=== PATIENT | female | born 1955 | race Caucasian/White ===

== ENCOUNTER 2023-07-12 12:45 | Outpatient (RCR) | payer OTHER, SELFPAY ==
--- NOTE | 2023-07-12 16:38 | PT.OPEX ---
PT [facility] [facility] PT [facility] Eval Start: 07/12/23 16:19 Freq: Status: Active Protocol: Document 07/12/23 16:19 SILVANA (Rec: 07/12/23 16:31 SILVANA [id number]) E-signed By Jessica White DPT Physical Therapy Outpatient Evaluation Insurance Information Recert Due Date 10/10/23 Insurance Name Medicare B Medical Diagnosis L hip OA L JÚNIOR 07/19/23 Treating Diagnosis L hip pain, impaired L hip ROM , limited tolerance for extended standing/walking, limping/antalgic gait, core/ hip/glut weakness Subjective Subjective Patient reports chronic L hip pain leading up to L JÚNIOR scheduled for 07/18. She has been doing some PT leading up to her JÚNIOR surgery, HEP is going well. She c/o ongoing pain, limited ROM, glut/hip weakness. Patient has family living with her, lots of help at home to assist as needed after surgery. She reports having R JÚNIOR about 8 years ago or so - Dr Luu with posterior approach. She has not been needing an AD but is able to borrow a walker and has a cane to use after surgery. Pain range 3-8/10. Using pain meds as needed. Date of Last Physician Visit 06/24/23 Date of Surgery (If applicable) 07/19/23 Current Work Status Retired Precautions Treatment Precautions/Contraindications HX L TKA, R JÚNIOR Assessment Assessment/Impression Patient is a 67 year old female with L hip pain, impaired L hip ROM, limited tolerance for extended standing/walking, limping/ antalgic gait, core/hip/glut weakness. Pain range 3-8/10. Patient seen in PT today for pre-op session to provide education/information on upcoming JÚNIOR surgery, safety information/HO, equipment instruction including use of FWW, and instruction in JÚNIOR exercises. Handouts issued for exercises, patient to perform them leading up to surgery. Patient has HEP from PT leading up to her hip surgery and she was able to demonstrate these exercises this session. Plan is for same day d/c home after her L JÚNIOR. Reviewed therapy plan after surgery including JÚNIOR exercises, amb with FWW, and stairs. Patient is scheduled for OP PT post op at another PT clinic. Patient seen for pre-op only session today. She reports having family at home to assist as needed after surgery. She has a FWW and cane to use as needed after surgery. Patient has 3 stairs to enter the home, no railing but plans to use cane and family arm support. Once inside patient can stay on the main level during the day but she is planning to go upstairs to her bedroom. The upper level has a tub shower. Patient reports lower level of the home has a walk in shower. She has high rise toilet seats . Patient would benefit from skilled PT for her post op recovery and this is scheduled at another PT clinic. No further PT scheduled at this clinic. Plan of Care Rehabilitation Potential Good Physical Therapy Goals 1. Patient will be educated in JÚNIOR pre/post-op safety, mobility, and exercises with HOs provided within one visit with patient returning to OP PT for post op treatment after R JÚNIOR surgery on 07/19/23. Note - patient will be going to a different OP PT clinic for her post op rehab. Coordination/Communication With Referral Source Treatment Plan/Direct Interventions Therapeutic Exercises Frequency/Duration pre-op JÚNIOR session only Patient Will Be Discharged From Therapy Completion of LTG(s),Skills Plateau,Independent w/HEP, Independently Progressing Evaluation Billing Untimed Code Treatment Minutes 35 Complexity Low Certification Information Initial Certification Date 07/12/23 Ending Certification Date 10/10/23 Provider Signature Shows Agreement With POC & Medical Necessity Physician Signature & Date Requested Please Sign/Date Here Physician Comment/Change : Physician NPI Number #
== END 2023-11-09 23:59 | disposition home or self-care (01) ==
PROVIDERS: PCP Physician Assistant Medical; Visit Provider Orthopaedic Surgery Sports Medicine
DX: M16.12 Unilateral primary osteoarthritis, left hip (principal); Z74.09 Other reduced mobility; Z51.89 Encounter for other specified aftercare; R26.9 Unspecified abnormalities of gait and mobility; M62.81 Muscle weakness (generalized); R29.898 Other symptoms and signs involving the musculoskeletal system
CPT/HCPCS: 97161

== ENCOUNTER 2023-07-19 06:02 | Day surgery (SDC) | payer OTHER, SELFPAY ==
[2023-07-19] VITALS (21 sets, daily range): BP systolic 96–134; BP diastolic 45–75; PULSE 52–87; RESP 11–16; TEMP 36.1–36.8; O2SAT 88–100; BMI 25.4
[2023-07-19] MEDS: LACTATED RINGERS 1000 ML 1,000 ML 100 ML IV (06:30)
[2023-07-19] MEDS: OXYCODONE (CR) 10 MG TAB.ER.12H PO (06:45)
[2023-07-19] MEDS: ACETAMINOPHEN 500 MG TABLET 1000 MG PO ×3 (06:45→17:53)
[2023-07-19] MEDS: MIDAZOLAM HCL 1 MG/ML inj IVP (07:20)
[2023-07-19] MEDS: fentaNYL 100 MCG/2 ML inj IVP (07:20)
--- NOTE | 2023-07-19 07:20 | XR_ITS ---
Patient: BAN KEN Facility:?[facility] Patient ID:?[id number] Site Patient ID:?[id number] Site :?1955 Study:?XRay-Hip Left 2 VIEW POST OP-07/19/2023 10:13:32 AM Ordering Physician:FABI Final Report: Indication: Postop Technique: AP hip centered pelvis and lateral view left hip Findings/Impression: Hardware from a left total hip arthroplasty is in satisfactory position. Bone alignment is normal. No sign of acute fracture. Postop changes are within normal limits. Dictated by Arsh Cabezas MD @ 07/19/2023 10:16:55 AM Signed by:?Arsh Cabezas MD @07/19/2023 10:16:55 AM (Electronic Signature)
--- NOTE | 2023-07-19 07:30 | XR_ITS ---
Patient: BAN KEN Facility:?[facility] Patient ID:?[id number] Site Patient ID:?[id number] Site :?[id number] Study:?XRay-Hip Left w/ c-arm-07/19/2023 9:07:34 AM Ordering Physician:?Jefferson Harper Final Report: Indication: Hip replacement surgery Technique: AP hip fluoroscopic images. Fluoroscopy time 32.4 seconds. Findings/Impression: Hardware from a left total hip arthroplasty is in satisfactory position. Dictated by Arsh Cabezas MD @ 07/19/2023 9:33:22 AM Signed by:?Arsh Cabezas MD @07/19/2023 9:33:22 AM (Electronic Signature)
--- NOTE | 2023-07-19 07:32 | SUR.PREOP ---
TIME?OUT:?0718 PT/RN/MDA?VERIFICATION?OF?SURGICAL?SITE,?PROCEDURE,?AND?CONSENT OBTAINED?PRIOR?TO?INVASIVE?PROCEDURE.
[2023-07-19] MEDS: CEFAZOLIN 2 GM in 0.9 % SODIUM CHLORIDE Mini-bag 100 ML IVPB ×2 (07:35→15:07)
--- NOTE | 2023-07-19 07:38 | W.PM.H&PU ---
History & Physical Update History & Physical Update H&P Reviewed and patient assessed: No changes noted
[2023-07-19] MEDS: TRANEXAMIC ACID 100 MG/ML INJ 1000 MG IV (07:40)
[2023-07-19] MEDS: LACTATED RINGERS 1000 ML 1,000 ML 125 ML IV (07:59)
--- NOTE | 2023-07-19 09:03 | PM.ORPRC ---
Procedure Note Date of procedure: 07/19/23 Procedure: PREOPERATIVE DIAGNOSIS: 1. Left hip osteoarthritis, severe, primary POSTOPERATIVE DIAGNOSIS: 1. Left hip osteoarthritis, severe, primary PROCEDURE: 1. Left total hip arthroplasty-anterior approach 2. 58114 - intraoperative fluoroscopy up to 1 hour. SURGEON: Jefferson Harper MD. CUSTOMER MANAGEMENT SPECIALIST: Markus Goyal PA-C; Everett GILES - Of note, a skilled political science research assistant was critical for this case to aid in patient positioning, tissue retraction, limb manipulation/positioning, dislocation/relocation, patient safety, and closure. ANESTHESIA: General endotracheal anesthetic EBL: 300 mL IMPLANTS: DePuy J&J uncemented total hip [place] cup size 52, hole eliminator, +4 neutral liner Actis stem, standard offset, size 8 +1.5 mm ceramic 36mm head. COMPLICATIONS: None evident INDICATIONS: The patient is a pleasant 67-year-old female who has experienced severe left hip pain and difficulty bearing weight. Workup included x-rays which revealed severe osteoarthrosis in the hip. Given the deformity, the dysfunction, and the pain, as well as the failure of nonoperative management, recommendation was made for surgery. FINDINGS: Full-thickness chondral loss diffusely throughout the femoral head and acetabulum. Osteophytes around the femoral head/neck junction and her perimeter of the acetabulum. Moderate effusion upon entering the joint. DESCRIPTION OF PROCEDURE: Following a thorough discussion of risks, benefits, and alternatives consent was obtained and the left hip was marked. The patient was brought to the operating room and placed supine on the operating table. Induction of anesthesia was undertaken. 1 g IV Ancef and 1 g tranexamic acid was administered within 1 hr of incision preoperatively. Proper time-out was performed identifying proper patient, site, procedure. The operative extremity was prepped and draped in the appropriate sterile fashion using ChloraPrep after the patient was positioned on the [place] table with head in neutral alignment and all bony prominences well padded. C-arm fluoroscopic imaging was utilized to confirm proper pelvis rotation and position, and to get true AP films of both the contralateral left, and the affected left hip. This is for comparison. A longitudinal incision was made starting approximately 1 cm distal to the ASIS, and 3-4 cm lateral. The incision was extended distally aiming toward the lateral border the patella. Sharp incision through skin and bovie cautery through the subcutaneous tissue allowed identification of the TFL fascia. This was sharply divided, and the fascia bluntly released from the muscle fibers as we dissected medial. Upon coming to the medial border, we were able to retract the TFL laterally, and penetrated the deeper fascia and identify the crossing circumflex vessels. These were ligated/cauterized. The rectus was elevated from the capsule, and retractors placed laterally and medially along the femoral neck to help with visualization of the capsule. We then performed an inverted T capsulotomy. The capsule was tagged for later repair. Retractors were placed inside the capsule. The femoral neck was visualized after releasing medially down to the lesser trochanter, along the saddle laterally, and up onto the acetabulum. The femoral neck cut was made in line with our preoperative templating. The head was removed in a single piece, and sized. We turned our attention to acetabular preparation. Initially, the labrum was resected from around the perimeter, the pulvinar was excised, allowing us to visualize the false wall. We started the reaming with a 43 mm reamer. This was medialized down to the true wall. We then enlarged our reamers sequentially up to one size less than the selected cup size. We trialed at the same size and found it to have an excellent fit. The selected cup was then opened, inserted, and impacted in line with the goal of 40-45? of abduction, and 20-25? of anteversion. This was confirmed on C-arm fluoroscopic imaging to be in the appropriate/goal position. Once the cup was placed we placed a hole eliminator and a liner consistent with preop planning. Attention was turned to the femoral preparation. The limb was extended, externally rotated, and adducted. The posteromedial capsule was released, as retractors were placed allowing excellent access to the proximal femur. Initially a box spring maker was followed by canal finder followed by various broaches. We broached sequentially up to size noted above, found it to have excellent rotational control, and trialing various heads and necks, revealed that appropriate neck offset, and the above noted head size provided the greatest stability, and synagogue of length, and offset. C-arm fluoroscopic imaging confirmed position of the stem, as well as leg lengths, which were compared with the pre procedure all fluoroscopic images. Trial implants were removed, the real femoral stem inserted, as was the ceramic head. After reducing, the leg was placed through range of motion and stability was confirmed anterior, posterior, and lateral. A 3 min Betadine soak was then performed, and thorough irrigation with normal saline followed. Closure of the capsule was performed with #1 PDS. Bleeding was confirmed to be controlled at this stage, and the TFL fascia was closed with #0 strata fix. Subcutaneous, and subcuticular closure was performed with 2-0 Vicryl and 4-0 Monocryl, respectively. Dressings were applied, and the patient was awoken from anesthesia and transferred the PACU in stable condition. A skilled political science research assistant was critical for this case to aid in patient positioning, tissue retraction, proximal femur exposure, limb manipulation/positioning, dislocation/relocation, patient safety, and closure. PLAN: 1. Weight bear as tolerated operative extremity. 2. 23 hr perioperative antibiotics. 3. Ice. 4. PT/OT consults for ambulation assistance/mobility education. 5. Social work consult for discharge planning. 6. DVT prophylaxis with at SCDs, Bernardo Andrade, and Xarelto x5 days followed by aspirin for a total of 1 month..
--- NOTE | 2023-07-19 09:41 | W.ANESCHARGE ---
Anesthesia Charges Start Date/Time Anesthesia Start Date: 07/19/23 Anesthesia Start Time: 07:29 Stop Date/Time Anesthesia Stop Date: 07/19/23 Anesthesia Stop Time: 09:39
[2023-07-19] MEDS: HYDROmorphone 0.5 mg/0.5 ml inj IVP ×2 (09:42→10:07)
[2023-07-19] MEDS: fentaNYL 100 MCG/2 ML inj 50 MCG IVP ×2 (09:54→10:53)
[2023-07-19] MEDS: LACTATED RINGERS 1000 ML 1,000 ML 35 ML IV (10:03)
--- NOTE | 2023-07-19 10:38 | SUR.PHASEI ---
patient meets pacu d/c criteria
--- NOTE | 2023-07-19 10:52 | P.NB_ITS ---
Nerve Block Nerve Block Time Seen by Provider: 07:15 Date Seen: 07/19/23 Type of block requested by surgeon for post-operative analgesia: ZAK/LFCN Side: left Time out performed: Yes Verification of patient name: Yes Verification of date of : Yes Site marking: site marked Name of person performing procedure: Broderick Continuous monitoring Was continuous monitoring of O2 sat, B/P, cardiac rehabilitation program director, recorded every 15 minutes?: Yes Procedure Checklist: sterile prep, needles and gloves Ultrasound guided. Images saved: Yes Medications given in 5ml increments after negative aspiration: Ropivicaine %: 0.5 mL: 30 Needle gauge: 20 Decadron (mg): 10 Precedex (mcg): 25 Patient tolerated procedure well: Yes Additional comments: Needle noted below psoas tendon needle noted adjacent to LFCN Block Charges Block Charge (with Pro Fee): Other Periph Nerve Block Use of Ultrasound Machine for Block: Yes- US Guidance/pain block
--- NOTE | 2023-07-19 10:53 | W.ANESCHARGE ---
Anesthesia Charges Start Date/Time Anesthesia Start Date: 07/19/23 Anesthesia Start Time: 07:29 Stop Date/Time Anesthesia Stop Date: 07/19/23 Anesthesia Stop Time: 09:39
--- NOTE | 2023-07-19 11:34 | SUR.PHASEII ---
1115: pt wanting to sit in chair. Ambulated to chair with walker. Pt states she feels woosy. Ate bites of toast, sipping on coke. in room. Pt rates pain 5/10. Unchanged from Fentanyl dose.
--- NOTE | 2023-07-19 13:02 | SUR.PHASEII ---
1230: pt requesting tylenol for pain medication. Declined narcotic pain medications, pt states those don't really work for me. Pt ambulated with walker to bathroom. Pt reported lightheadedness while walking. Unable to void. Pt lying on side on in bed. Sips of water. Increased IV fluids.
--- NOTE | 2023-07-19 14:12 | SUR.PHASEII ---
OT here at 1330, she worked with pt, pt reported feeling dizzy and lightheaded, BP 90s/50s. OT didn't clear pt to discharge home. MDA and surgeon updated. Pt will recover on Med/Surg. Awaiting room assignment. Pt sitting down in chair, encouraged pt to eat something. Pt eating ice cream and sipping on coke.
--- NOTE | 2023-07-19 14:30 | REH.OT ---
OT: Limited eval completed in SDS due to patient symptomatic with c/o feeling lightheaded, woozy both at rest and with minimal activity of getting dressed and in standing with walker. BP seated 98/66, O2 sats 92% on RA, HR 72bpm. After standing, BP 93/56, O2 sats 94% on RA, HR 67bpm. Due to symptoms pt requesting to return to supine. Patient and spouse provided ed with breathing and positioning strategies. Spoke with nsg who reports pt has c/o feeling lightheaded since surgery, noted plan to transfer to floor. OT to follow up with 1more visit to progress activity tolerance and address ADLs with modifications further.
[2023-07-19] MEDS: LACTATED RINGERS 1000 ML 1,000 ML 75 ML IV (15:07)
[2023-07-19] MEDS: SODIUM CHLORIDE 0.9 % (FLUSH) 10 ML SYRINGE IVF (15:08)
--- NOTE | 2023-07-19 15:09 | SUR.PHASEII ---
Pt transferred to Med/Surg RM 255, Report given to Tammy CHAUDHRY.
--- NOTE | 2023-07-19 16:44 | REH.PT ---
Pt performed HEP for post op JÚNIOR with good tolerance. Amb 40-60 feet at a time with 2ww and sba. No complaints of lightheadedness with gait and transfers. Pt to be seen by PT tomorrow am.
--- NOTE | 2023-07-19 17:59 | PC.NURSE ---
End of Shift NOte: Patient was to be a same day surgery patient but d/t low b/p and lightheadedness the decision was made to keep her over night. She arrived per cart from surgery. Was able to ambulate to her bed without difficulty. Has been sitting up in the recliner for dinner. Did ambulate x1 with PT and also ambulated x1 with the GARO. Received scheduled tylenol for pain. Otherwise will continue to monitor until next shift arrives.
[2023-07-19] MEDS: hydrOXYzine pamoate 25 MG CAPSULE PO (18:45)
[2023-07-19] MEDS: SENNOSIDES 1 TAB TABLET 2 TAB PO (20:12)
== END 2023-07-19 20:35 | disposition home or self-care (01) ==
LOC: OR 07:17 → MEDSURG 17:27
PROVIDERS: PCP Physician Assistant Medical; Visit Provider Orthopaedic Surgery Sports Medicine
PROC: (CPT 27130; principal; 2023-07-19 07:30)
DX: M16.12 Unilateral primary osteoarthritis, left hip (principal); G89.18 Other acute postprocedural pain
CPT/HCPCS: 27130; 01214; 36415; 64450; 73501; 76000; 76942; 86850; 86900; 86901; 97165; 97535; A9270; C1776; J0330; J0690; J1100; J1170; J1630; J2250; J2371; J2405; J2704; J2710; J2795; J3010; J3475; J3490; J7120